=== PATIENT | male | born 1995 | race African-American/Black ===

== ENCOUNTER 2020-04-24 19:11 | Emergency (ER) | payer OTHER ==
[2020-04-24 19:30] VITALS: BP 127/73; PULSE 63; RESP 20; TEMP 98.5
[2020-04-24] MEDS ORDERED: AZITHROMYCIN 500 MG TAB PO STA (19:39)
[2020-04-24] MEDS ORDERED: cefTRIAXone 250 MG VIAL IM STA (19:39)
--- NOTE | 2020-04-24 19:43 | ED ---
General Adult HPI - General Chief complaint: Urogenital Stated complaint: Urogenital Time Seen by Provider: 04/24/20 19:29 Source: patient, RN notes reviewed, old records reviewed Mode of arrival: ambulatory Limitations: no limitations - History of Present Illness Initial comments: 24-year-old male presenting for evaluation of urethral discharge and concern for STDs. He does have some minimal dysuria as well. He has had unprotected intercourse and is specifically concerned about STDs. He denies any penile pain or scrotal pain. No fever. No abdominal pain. No other complaints. - Related Data Previous Rx's Medication Instructions Recorded Cephalexin [Keflex] 500 mg PO Q12HR #20 cap 04/24/20 Allergies Allergy/AdvReac Type Severity Reaction Status Date / Time No Known Allergies Allergy Verified 04/24/20 19:30 Review of Systems ROS Statement: Those systems with pertinent positive or pertinent negative responses have been documented in the HPI. ROS Other: All systems not noted in ROS Statement are negative. Past Medical History Past Medical History: No Reported History History of Any Multi-Drug Resistant Organisms: None Reported Past Surgical History: No Surgical Hx Reported Past Psychological History: No Psychological Hx Reported Smoking Status: Vaper Past Alcohol Use History: None Reported General Exam Limitations: no limitations General appearance: alert, in no apparent distress Head exam: Present: atraumatic, normocephalic Eye exam: Present: normal appearance, PERRL ENT exam: Present: normal exam Neck exam: Present: normal inspection. Absent: tenderness, meningismus Respiratory exam: Present: normal lung sounds bilaterally. Absent: respiratory distress Cardiovascular Exam: Present: regular rate, normal rhythm GI/Abdominal exam: Present: soft. Absent: distended, tenderness, guarding Extremities exam: Present: normal inspection. Absent: normal capillary refill, pedal edema Neurological exam: Present: alert, oriented X3, CN II-XII intact, normal gait. Absent: motor sensory deficit Psychiatric exam: Present: normal affect, normal mood Skin exam: Present: warm, dry, intact. Absent: cyanosis, diaphoretic Course Vital Signs 04/24/20 19:26 Temperature 98.5 F Pulse Rate 63 Respiratory 20 Rate Blood Pressure 127/73 O2 Sat by Pulse 97 Oximetry Medical Decision Making - Medical Decision Making 24-year-old male presenting with concern for STD and urethral discharge. Patient is informed that he will be tested for gonorrhea and chlamydia. He has not received testing or treatment for HIV, syphilis, HPV, or any other sexual transmitted diseases. He will need follow-up with his primary care physician or the health Department regarding further testing if desired. Patient does have 99 white cells on urinalysis, urine culture pending. Patient will be started on antibiotics for the possibility of concurrent UTI. - Lab Data Lab Results 04/24/20 Range/Units 19:34 Urine Color Yellow Urine Appearance Cloudy (Clear) Urine pH 6.0 (5.0-8.0) Ur Specific [place] 1.033 (1.001-1.035) Urine Protein Trace H (Negative) Urine Glucose (UA) Negative (Negative) Urine Ketones Trace H (Negative) Urine Blood Negative (Negative) Urine Nitrite Negative (Negative) Urine Bilirubin Negative (Negative) Urine Urobilinogen 3.0 (<2.0) mg/dL Ur Leukocyte Esterase Large H (Negative) Urine RBC 6 H (0-5) /hpf Urine WBC 99 H (0-5) /hpf Hyaline Casts 1 (0-2) /lpf Urine Mucus Occasional H (None) /hpf Disposition Clinical Impression: Urethritis Disposition: HOME SELF-CARE Condition: Good Instructions (If sedation given, give patient instructions): Urinary Tract Infection in Men (ED), Nonspecific Urethritis in Men (ED) Prescriptions: Cephalexin [Keflex] 500 mg PO Q12HR #20 cap Is patient prescribed a controlled substance at d/c from ED?: No Referrals: None,Stated [Primary Care Provider] - 1-2 days Alireza Tran [STAFF PHYSICIAN] - 1-2 days Salma Zarate MD [REFERRING] - 1-2 days
[2020-04-24 20:01] LABS: Appearance,Urine Cloudy (Clear); Bilirubin,Urine Negative (Negative); Blood,Urine Negative (Negative); Color,Urine Yellow; Glucose,Urine (UA) Negative (Negative); Ketones,Urine Trace (Negative); Leukocyte Esterase,Urine Large (Negative); Nitrite,Urine Negative (Negative); Protein,Urine Trace (Negative); RBC,Urine 6 /hpf (0-5); Specific Gravity,Urine 1.033 (1.001-1.035); WBC,Urine 99 /hpf (0-5)
[2020-04-24 20:02] LABS: Hyaline Casts,Urine 1 /lpf (0-2); Mucus,Urine Occasional /hpf
[2020-04-25 14:43] LABS: C. trachomatis,PCR Positive (Neg,Equiv); Chlamydia trachomatis Source Urine; N. gonorrhoeae,PCR Positive (Neg,Equiv); Neisseria Source Urine
== END 2020-04-24 20:40 | disposition home or self-care (01) ==
LOC: EC 19:11
DX: N34.2 Other urethritis (principal); F17.290 Nicotine dependence, other tobacco product, uncomplicated
CPT/HCPCS: 81001; 87491; 87591; 87086; 99284; 96372; J0696